=== PATIENT | male | born 1955 | race American Indian/Alaskan Native ===

== ENCOUNTER 2016-12-24 00:53 | Inpatient (IN) | payer MEDICARE ==
[2016-12-24 01:37] LABS: Basophils % (Auto) 0.3 % (0.0-1.8); Eosinophils % (Auto) 0.4 % (0.0-4.3); Hemoglobin 12.6 gm/dl (11.8-15.2); Mean Corpuscular HGB Conc 32 % (32-34); Mean Corpuscular Hemoglobin 27 pg (28-32); Mean Corpuscular Volume 85 fl (84-94); Platelet Count 220 K/mm3 (140-440); Red Blood Count 4.59 M/mm3 (3.65-5.03); White Blood Count 6.6 K/mm3 (4.5-11.0)
[2016-12-24 01:55] LABS: Anion Gap 17 mmol/L; Blood Urea Nitrogen 12 mg/dL (9-20); Calcium 8.7 mg/dL (8.4-10.2); Carbon Dioxide 27 mmol/L (22-30); Chloride 103.1 mmol/L (98-107); Glucose 120 mg/dL (75-100); Potassium 4.3 mmol/L (3.6-5.0); Sodium 143 mmol/L (137-145)
[2016-12-24] MEDS ORDERED: ZOFRAN IV ONE (02:30)
[2016-12-24] MEDS ORDERED: MORPHINE IV ONE (02:30)
--- NOTE | 2016-12-24 02:37 | Emergency Department Report ---
HPI - General Chief Complaint: Chest Pain Time Seen by Provider: 12/24/16 02:16 - HPI HPI: Room 9 The patient is a 61-year-old male presenting with a chief complaint of chest pain. The patient has a history of neuroendocrine cancer states yesterday he developed lower right chest pain described as aching in nature. The patient states the pain initially was intermittent but tonight has become constant. The patient states the pain has worsened tonight. Patient denies shortness of breath, nausea/vomiting, diaphoresis, cough, pleurisy or fever. The patient currently gives his pain a score of 4-6/10. The patient states he's never had a stress test or cardiac catheterization Location: Right chest Duration: 2 days Quality: Aching Severity: 4-6/10 Modifying factors: [see above] Context: [see above] Mode of transportation: Unknown ED Past Medical Hx - Past Medical History Previous Medical History?: Yes Additional medical history: Cancer of Pancreas - Surgical History Past Surgical History?: No - Family History Family history: no significant - Social History Smoking Status: Never Smoker Substance Use Type: None (denies illicit drug use) ED Review of Systems ROS: Stated complaint: LOWER CHEST PAIN Other details as noted in HPI Comment: All other systems reviewed and negative Constitutional: denies: chills, fever Eyes: denies: eye pain, eye discharge, vision change ENT: denies: ear pain, throat pain Respiratory: denies: cough, shortness of breath, wheezing Cardiovascular: chest pain Endocrine: no symptoms reported Gastrointestinal: denies: abdominal pain, nausea, diarrhea Genitourinary: denies: urgency, dysuria Musculoskeletal: denies: back pain, joint swelling, arthralgia Skin: denies: rash, lesions Neurological: denies: headache, weakness, paresthesias Psychiatric: denies: anxiety, depression Hematological/Lymphatic: denies: easy bleeding, easy bruising Physical Exam - Physical Exam Vital Signs: Vital Signs 12/24/16 12/24/16 01:09 01:56 Temperature 98.1 F 98.6 F Pulse Rate 79 77 Respiratory 17 16 Rate Blood Pressure 141/84 Blood Pressure 141/84 126/73 [Left] O2 Sat by Pulse 99 99 Oximetry Physical Exam: GENERAL: The patient is well-developed well-nourished male lying on stretcher not appearing to be in acute distress. [] HEENT: Normocephalic. Atraumatic. Extraocular motions are intact. Patient has moist mucous membranes. NECK: Supple. Trachea midline CHEST/LUNGS: Clear to auscultation. There is no respiratory distress noted. There is no chest wall tenderness to palpation HEART/CARDIOVASCULAR: Regular. There is no tachycardia. There is no gallop rub or murmur. ABDOMEN: Abdomen is soft, nontender. Patient has normal bowel sounds. There is no abdominal distention. SKIN: There is no rash. There is no edema. There is no diaphoresis. NEURO: The patient is awake, alert, and oriented. The patient is cooperative. The patient has normal speech MUSCULOSKELETAL: There is no evidence of acute injury. ED Course Vital Signs 12/24/16 12/24/16 01:09 01:56 Temperature 98.1 F 98.6 F Pulse Rate 79 77 Respiratory 17 16 Rate Blood Pressure 141/84 Blood Pressure 141/84 126/73 [Left] O2 Sat by Pulse 99 99 Oximetry ED Medical Decision Making - Lab Data Result diagrams: 12/24/16 01:16 12/24/16 01:16 Laboratory Tests 12/24/16 12/24/16 12/24/16 01:16 01:16 04:29 WBC 6.6 RBC 4.59 Hgb 12.6 Hct 39.0 MCV 85 MCH 27 L MCHC 32 RDW 15.0 Plt Count 220 Lymph % (Auto) 39.8 H [place] % (Auto) 13.9 H Eos % (Auto) 0.4 Baso % (Auto) 0.3 Lymph # 2.6 [place] # 0.9 H Eos # 0.0 Baso # 0.0 Seg Neutrophils % 45.6 Seg Neutrophils # 3.0 Sodium 143 Potassium 4.3 Chloride 103.1 Carbon Dioxide 27 Anion Gap 17 BUN 12 Creatinine 1.0 Estimated GFR > 60 BUN/Creatinine Ratio 12.00 Glucose 120 H Calcium 8.7 Troponin T < 0.010 < 0.010 - EKG Data -: EKG Interpreted by Me EKG shows normal: sinus rhythm Rate: normal - EKG Data When compared to previous EKG there are: previous EKG unavailable Interpretation: nonspecific ST-T wave jacek (seal vision leads V2 and V3, V4, V5 likely secondary to early repolarization. There are no reciprocal changes) - Radiology Data Radiology results: image reviewed (chest x-ray) interpreted by me: Chest x-ray- no focal infiltrates, no pneumothorax. Port in place - Differential Diagnosis PE, ACS, pneumothorax, GERD, pericarditis Critical care attestation.: If time is entered above; I have spent that time in minutes in the direct care of this critically ill patient, excluding procedure time. ED Disposition Clinical Impression: Chest pain Disposition: OP ADMIT IP TO THIS HOSP Is pt being admited?: Yes Does the pt Need Aspirin: No Condition: Fair Instructions: Chest Pain (ED) Time of Disposition: 05:51 (hospitalist paged. CT chest pending)
[2016-12-24] MEDS ORDERED: NACL ONE (04:14)
--- NOTE | 2016-12-24 06:58 | Cat Scan Report ---
FINAL REPORT EXAM: CT ANGIO CHEST HISTORY: right-sided chest pain pt wih known liver ca. TECHNIQUE: CT angiography of the chest was performed. IV contrast administered. Coronal and sagittal reformatted images were obtained. PRIORS: None. FINDINGS: There is no aortic dissection seen. There is no significant mediastinal or hilar mass seen. There are no filling defects seen within the pulmonary arterial circulation to suggest pulmonary embolism. The lungs are clear. There is no pneumothorax seen. There are no pleural effusions seen. There are numerous hepatic masses seen which are consistent with malignancy. There also multiple sclerotic lesions seen in the spine, ribs, sternum, humeral heads and scapulae. This is consistent with osteoblastic metastatic disease. IMPRESSION: Hepatic masses are consistent with malignancy/metastatic disease. Osteoblastic metastatic disease. No acute abnormality seen in the chest. There is no pulmonary embolism or aortic dissection seen.
--- NOTE | 2016-12-24 07:32 | XRay Report ---
CHEST 2 VIEWS INDICATION: Chest pain, on and off since yesterday. COMPARISON: None similar at this institution. FINDINGS: PA and lateral chest radiographs demonstrate right chest port tip about the cavoatrial junction, overlying the spine. Normal cardiomediastinal silhouette. Well-expanded lungs with approximately 6 mm peripheral right mid lung nodular density not entirely excluded on the frontal view. Bones questionably sclerotic with mild superior endplate depression of a lower thoracic vertebra posteriorly. Asymmetric widening of the left fifth rib posteriorly also noted. A coil-like material also projects in the upper abdomen. Right hemidiaphragm mildly elevated anteriorly. CONCLUSION: No acute chest process with few iatrogenic changes and questionable underlying neoplastic/metastatic disease, as described. Please correlate. Thank you for the opportunity to participate in this patient's care.
--- NOTE | 2016-12-24 07:36 | Admit Criteria Form ---
Admission Criteria Documentation: CARDIOLOGY GRG Clinical Indications for Admission to Inpatient Care ( Place 'X' for any and all applicable criteria): Hospital admission is needed for appropriate care of the patient because of ANY ONE of the following (1): [ ] I. Hemodynamic instability as indicated by ALL of the following (1)(2)(3) (4)(5) [ ]a) Vital signs or other findings not as expected for chronic patient condition or baseline [ ]b) Instability indicated by ANY ONE of the following: [ ]i) Hypotension [ ]ii) Symptomatic Tachycardia unresponsive to treatment ( e.g., analgesia, fluids, sedation as indicated) [ ]iii) Inadequate perfusion indicated by ANY ONE of the following: [ ] 1) Lactic acidosis (> 2 mmol/L) [ ] 2) New abnormal capillary refill (> 3 seconds) [ ] 3) Reduced urine output [ ] 4) New altered mental status [ ]iv) Orthostatic vital sign changes unresponsive to treatment (e.g., fluids) [ ]v) IV inotropic or vasopressor medication required to maintain adequate blood pressure or perfusion [ ] II. Severe heart failure as indicated by ANY ONE of the following(17)(18) [ ]a) Respiratory distress [ ]b) Hypotension [ ]c) Anasarca (refractory to outpatient therapy) [ ]d) Cardiac arrhythmias of immediate concern [ ]e) Myocardial ischemia [ ] III. Cardiac arrhythmias or findings of immediate concern indicated by ANY ONE of the following (19)(20): [ ] a) Heart rhythms that are inherently dangerous or unstable indicated by ANY ONE of the following (21)(22)(23): [ ] i) Resuscitated ventricular fibrillation or cardiac arrest [ ] ii) Ventricular escape rhythm [ ] iii) Sustained ventricular tachycardia (30 seconds or more of ventricular rhythm at greater than 100 beats per minute) [ ] iv) Nonsustained ventricular tachycardia and ANY ONE of the following: [ ] 1) Suspected cardiac ischemia as cause or consequence of ventricular tachycardia [ ] 2) In setting of acute myocarditis [ ] b) Unstable cardiac conduction defects indicated by ANY ONE of the following(23)(24)(25) [ ] i) Type II second-degree atrioventricular block [ ]ii) Third-degree atrioventricular block [ ]iii) New-onset left bundle branch block with suspected myocardial ischemia [ ]c) Any heart rhythm and ANY ONE of the following (21)(22)(26)(27) (28) [ ] i) Continuous long-term ECG monitoring needed (e.g., initiation of drug requiring monitoring for more than 24 hours) [ ] ii) Patient has automatic implanted cardioverter defibrillator that is repeatedly firing, malfunctioning, or in need of immediate adjustment of settings beyond the scope of ambulatory or observation care [ ]d) Heart rhythms of concern due to ANY ONE of the following: [ ] i) Hypotension [ ] ii) Respiratory distress [ ] iii) Association with other significant symptoms (e.g., bradycardia with syncope or ongoing dizziness, supraventricular tachycardia with chest pain (14)(15)(17) [ ] IV. Monitoring for cardiac contusion beyond the scope of observation care needed [A](30)(31)(32) [ ] V. Surgical or device complication (e.g., valve replacement complication , pacemaker dysfunction) (35)(41)(44)(45)(46) [ ] . Inpatient palliative care needed. [B](49) Also use Inpatient Palliative Care Criteria [ ] VII. Nonbacterial thrombotic (marantic) endocarditis (36)(43)(47)(48) [X] VIII. Cardiology condition, symptom, or finding for which emergency and observation care has failed or are not considered appropriate. [ ] IX. Acute valvular disease requiring inpatient as indicated by ANY ONE of the following (41) [ ]a) Acute valvular regurgitation (42) [ ]b) Noninfectious valvulitis (43) [ ]c) Obstructive valve thrombosis [ ]d) Paravalvular leak [ ]e) Other significant valvular disorder remaining after emergency or observation level of care (as appropriate) [ ]X. Pericardial disease requiring inpatient treatment as indicated by ANY ONE of the following (33)(34)(35)(36)(37) [ ]a) Suspected tamponade (38)(39)(40) [ ]b) Hemopericardium [ ]c) Other significant pericardial disorder remaining after emergency or observation level of care (as appropriate) [ ] XI. Cardiac ischemia beyond scope of emergency and observation care. [ ] XII. Hypertension requiring inpatient treatment as indicated by ANY ONE of the following (6)(7)(8) [ ]a) SBP greater than 220 mm Hg or DBP greater than 120 mmHg despite treatment [ ]b) SBP greater than 140 mm Hg or DBP greater than 100 mm Hg with evidence of acute end organ damage as indicated by ANY ONE of the following [ ] i) Altered mental status [ ] ii) Acute renal failure as indicated by new onset of ANY ONE of the following (9)(10)(11)(12)(13) [ ]1) 3-fold rise in serum creatinine from baseline [ ]2) Serum creatinine greater than 4 mg/dL ( 354 micromoles/L) with acute rise greater than 0.5 mg/dL (44.2 micromoles/L) [ ]3) Reduction of more than 75% in estimated glomerular filtration rate from baseline [ ]4) Estimated glomerular filtration rate less than 35 mL/min/1.73m2 (0.59 mL/sec/1.73m2) in child up to 18 years of age [ ]5) Cessation of urine output indicated by ALL of the following [ ]A. Adequate volume status [ ]B. Inadequate urine output as indicated by ANY ONE of the following [ ]a. Urine output less than 0.3 mL/kg/hr for 24 hours [ ]b. Anuria (urine output less than 0.1 mL/kg/hr) for 12 hours [ ] iii) Aortic dissection [ ] iv) Myocardial Ischemia [ ] v) Left ventricular heart failure [ ]vi) Retinal Hemorrhage [ ]vii) Other significant finding [ ]c) Hypertension in child requiring inpatient treatment as indicated by ALL of the following(14)(15)(16) [ ] i) Outpatient treatment not effective, not available, or not appropriate [ ]ii) SBP or DBP greater than 95th percentile for age [ ]iii) Evidence of acute end organ damage as indicated by ANY ONE of the following [ ]1) Altered mental status [ ]2) Acute renal failure as indicated by new onset of ANY ONE of the following(9)(10)(11)(12)(13) [ ]A. 3-fold rise in serum creatinine from baseline [ ]B. Serum creatinine greater than 4 mg/dL (354 micromoles/L) with acute rise greater than 0.5 mg/dL (44.2 micromoles/L) [ ]C. Reduction of more than 75% in estimated glomerular filtration rate from baseline [ ]D. Estimated glomerular filtration rate less than 35 mL/min/1.73m2 (0.59 mL/sec/1.73m2) in child up to 18 years of age [ ]E. Cessation of urine output indicated by ALL of the following [ ]a. Adequate volume status [ ]b. Inadequate urine output as indicated by ANY ONE of the following [ ]i) Urine output less than 0.3 mL/kg/hr for 24 hours [ ]ii) Anuria ( urine output less than 0.1 mL/kg/hr) for 12 hours [ ]3) Severe headache [ ]4) Visual disturbance [ ]5) Retinal hemorrhage [ ]6) Other significant finding [ ]XIII. Complications of transplanted heart indicated by ANY ONE of the following(61): [ ]a) Acute graft rejection requiring inpatient management (eg, intravenous immunosuppression)(62)(63) [ ]b) Acute graft heart failure indicated by ANY ONE of the following(64): [ ]i) Hemodynamic instability [ ]ii) Cardiac arrhythmias of immediate concern [ ]iii) Pulmonary edema that is very severe (eg, mechanical ventilation needed, imminent or likely, need for 100% oxygen to keep oxygen saturation above 90%) [ ]iv) Pulmonary edema that is persistent as indicated by ALL of the following: [ ]1) New need for oxygen therapy to keep oxygen saturation above 90% (or increased FiO2 need from baseline) [ ]2) Has not improved sufficiently with emergency department or observation care IV diuretics or other heart failure treatments[E] [ ]v) Altered mental status that is severe or persistent [ ]vi) Increased creatinine (new on laboratory test) with reduction of more than 50% in estimated glomerular filtration rate from baseline [ ]vii) Progressively (ongoing) rising creatinine (known from past laboratory test) with reduction of more than 25% in estimated glomerular filtration rate from baseline [ ]viii) Acute renal failure [ ]ix) Acute peripheral ischemia (eg, examination shows pulseless, cool, mottled, or cyanotic extremity) [ ]x) Pulmonary artery catheter monitoring needed [ ]xi) Other sign or symptom of heart failure requiring inpatient treatment (ie, too severe or not responsive to outpatient and observation care treatment) [ ]c) Infection requiring inpatient management (eg, Hemodynamic instability, need for intravenous antimicrobial treatment)(66)(67)(68)(69)(70) [ ]d) Cardiac allograft vasculopathy requiring inpatient management ( eg evidence of cardiac ischemia)(71) [ ]e) Other complication of transplanted heart (eg, stroke, severe pulmonary hypertension, severe valvular dysfunction) requiring inpatient management(72) The original [facility] content created by [facility] has been revised. The portions of the content which have been revised are identified through the use of italic text or in bold, and [facility] has neither reviewed nor approved the modified material. All other unmodified content is copyright [facility] Please see references footnoted in the original [facility] edition 2016 Admission Criteria Met: Yes
[2016-12-24] MEDS ORDERED: TYLENOL PO PRN (07:49)
[2016-12-24] MEDS ORDERED: ZOFRAN IV PRN (07:49)
[2016-12-24] MEDS ORDERED: DULCOLAX PR PRN (07:49)
[2016-12-24] MEDS ORDERED: NITROSTAT SL PRN (07:51)
[2016-12-24] MEDS ORDERED: MORPHINE IV PRN (07:51)
[2016-12-24] MEDS ORDERED: SODIUM CHLORIDE FLUSH SYRINGE 10 ML IV PRN (08:06)
[2016-12-24] MEDS ORDERED: BABY ASPIRIN PO STA (08:06)
[2016-12-24] MEDS ORDERED: ZOFRAN IM PRN (08:13)
--- NOTE | 2016-12-24 08:15 | History and Physical Report ---
<CLAUDETTE BETTENCOURT - Last Filed: 12/24/16 14:20> History of Present Illness Date of examination: 12/24/16 Date of admission: 12/24/2016 Chief complaint: Chest Pain History of present illness: Patient is a 61 years old male with past medical history of liver cancer who presented to the ED complaining of right chest pain. He states that the pain began this morning and consisted of a dull pain. The pain was located over his right chest area somewhat near his shoulder; non radiating. The onset of pain came while the patient was at home. He noticed the pain as he was pulling something on his car. The pain is a dull, preceded by a short interval of a sharp pain. The sharp pain lasted around 30 second. He continued to have several episodes of the pain throughout the morning, so his decided to take him to the ED around 6:00 am. The painful episodes did not increase in intensity or severity during this time. At the ED the patient was given nitroglycerin, ASA and morphine which he claims helped alleviate the pain somewhat. The patient currently rated his pain a score of 5/10. He denies shortness of breath, nausea vomiting, and diaphoresis during these episodes of pain. Patient denies any recent flights or long car trips. He has never had chest pain in the past. Past History Past Medical History: other (Liver CA ) Past Surgical History: No surgical history Social history: no significant social history Family history: diabetes, hypertension Medications and Allergies Allergies Allergy/AdvReac Type Severity Reaction Status Date / Time No Known Allergies Allergy Unverified 12/24/16 01:09 Home Medications Medication Instructions Recorded Confirmed Last Taken Type Everolimus [Afinitor] 10 mg PO QDAY 12/24/16 12/24/16 12/23/16 History Active Meds: Active Medications Acetaminophen (Tylenol) 650 mg PO Q4H PRN PRN Reason: Pain MILD(1-3)/Fever >100.5/ECHOLS Aspirin (Aspirin) 325 mg PO DAILY LU Atorvastatin Calcium (Lipitor) 40 mg PO QHS LU Bisacodyl (Dulcolax) 10 mg WI QDAY PRN PRN Reason: Constipation unrelieved by MOM Morphine Sulfate (Morphine) 2 mg IV Q4H PRN PRN Reason: Pain, Moderate (4-6) Nitroglycerin (Nitrostat) 0.4 mg SL .Q5MIN PRN PRN Reason: Chest Pain Ondansetron HCl (Zofran) 4 mg IV Q8H PRN PRN Reason: N/V unrelieved by Reglan Ondansetron HCl (Zofran) 4 mg IM Q4H PRN PRN Reason: Nausea And Vomiting Sodium Chloride (Sodium Chloride Flush Syringe 10 Ml) 10 ml IV PRN PRN PRN Reason: LINE FLUSH Review of Systems Constitutional: no weight loss, no weight gain, no fever, no chills Ears, nose, mouth and throat: no ear discharge, no tinnitis, no decreased hearing Cardiovascular: chest pain, no orthopnea, no palpitations, no rapid/irregular heart beat, no syncope, no lightheadedness, no shortness of breath Respiratory: no cough with sputum, no excessive sputum, no hemoptysis Gastrointestinal: no nausea, no vomiting, no diarrhea, no coffee ground emesis Genitourinary Male: no hematuria, no flank pain, no discharge, no urinary frequency, no urinary hesitancy Rectal: no pain, no incontinence Musculoskeletal: no neck stiffness, no neck pain, no shooting arm pain Integumentary: no rash, no pruritis, no redness, no sores Neurological: no transient paralysis, no paralysis, no weakness, no parathesias Psychiatric: no anxiety, no memory loss, no change in sleep habits, no sleep disturbances, no insomnia Endocrine: no cold intolerance, no heat intolerance, no polyphagia, no excessive thirst Hematologic/Lymphatic: no easy bruising, no easy bleeding Allergic/Immunologic: no urticaria, no allergic rhinitis Exam - Constitutional Vitals: Temp Pulse Resp BP Pulse Ox 97.5 F L 74 16 138/77 100 12/24/16 07:51 12/24/16 07:51 12/24/16 07:51 12/24/16 07:51 12/24/16 07:51 General appearance: Present: no acute distress - EENT Eyes: Present: PERRL, EOM intact ENT: hearing intact, clear oral mucosa, dentition normal - Neck Neck: Present: supple - Respiratory Respiratory effort: normal Respiratory: bilateral: CTA - Cardiovascular Heart rate: 73 Rhythm: regular Heart Sounds: Present: S1 & S2 - Extremities Extremities: no ischemia Peripheral Pulses: within normal limits - Abdominal General gastrointestinal: Present: soft, non-tender Male genitourinary: Present: deferred - Rectal Rectal Exam: deferred - Integumentary Integumentary: Present: clear, warm, dry - Musculoskeletal Musculoskeletal: strength equal bilaterally - Psychiatric Psychiatric: appropriate mood/affect - Neurologic Neurologic: CNII-XII intact - Allied Health Allied health notes reviewed: nursing Results - Labs CBC & Chem 7: 12/24/16 08:49 12/24/16 08:49 Labs: Laboratory Last Values WBC 6.6 K/mm3 (4.5-11.0) 12/24/16 01:16 RBC 4.59 M/mm3 (3.65-5.03) 12/24/16 01:16 Hgb 12.6 gm/dl (11.8-15.2) 12/24/16 01:16 Hct 39.0 % (35.5-45.6) 12/24/16 01:16 MCV 85 fl (84-94) 12/24/16 01:16 MCH 27 pg (28-32) L 12/24/16 01:16 MCHC 32 % (32-34) 12/24/16 01:16 RDW 15.0 % (13.2-15.2) 12/24/16 01:16 Plt Count 220 K/mm3 (140-440) 12/24/16 01:16 Lymph % (Auto) 39.8 % (13.4-35.0) H 12/24/16 01:16 [place] % (Auto) 13.9 % (0.0-7.3) H 12/24/16 01:16 Eos % (Auto) 0.4 % (0.0-4.3) 12/24/16 01:16 Baso % (Auto) 0.3 % (0.0-1.8) 12/24/16 01:16 Lymph # 2.6 K/mm3 (1.2-5.4) 12/24/16 01:16 [place] # 0.9 K/mm3 (0.0-0.8) H 12/24/16 01:16 Eos # 0.0 K/mm3 (0.0-0.4) 12/24/16 01:16 Baso # 0.0 K/mm3 (0.0-0.1) 12/24/16 01:16 Seg Neutrophils % 45.6 % (40.0-70.0) 12/24/16 01:16 Seg Neutrophils # 3.0 K/mm3 (1.8-7.7) 12/24/16 01:16 Sodium 143 mmol/L (137-145) 12/24/16 01:16 Potassium 4.3 mmol/L (3.6-5.0) 12/24/16 01:16 Chloride 103.1 mmol/L (98-107) 12/24/16 01:16 Carbon Dioxide 27 mmol/L (22-30) 12/24/16 01:16 Anion Gap 17 mmol/L 12/24/16 01:16 BUN 12 mg/dL (9-20) 12/24/16 01:16 Creatinine 1.0 mg/dL (0.8-1.5) 12/24/16 01:16 Estimated GFR > 60 ml/min 12/24/16 01:16 BUN/Creatinine Ratio 12.00 % 12/24/16 01:16 Glucose 120 mg/dL (75-100) H 12/24/16 01:16 Calcium 8.7 mg/dL (8.4-10.2) 12/24/16 01:16 Troponin T < 0.010 ng/mL (0.00-0.029) 12/24/16 07:16 - Imaging and Cardiology Chest x-ray: image reviewed (neoplastic /metastatic disease) CT scan - chest: image reviewed (Hepatic masses are consistent with malignancy / Metastatic disease) Assessment and Plan Assessment and plan: Assessment and plan: Patient is a 61 years old male with past medical history of Liver cancer presented to the ED complaining of right chest pain. He denies shortness of breath, nausea vomiting, and diaphoresis during these episodes of pain. Patient denies any recent flights, trauma or long car trips. He has never had chest pain in the past. Chest x-ray-no focal infiltrates, no pneumothorax. Cardiac enzyme negative and EKG normal sinus rhythm. CTA no pulmonary embolism. ASSESSMENT/PLAN Acute coronary syndrome We will admit to telemetry 12 lead EKG Normal Sinus Rhythm, we will also obtained another EKG for any changes have taken since the first obtain We will do serial cardiac enzymes and follow cardiac enzymes troponin. Fluid hydration Stress test Lexiscan ordered Patient has recent Echocardiogram from [facility] Start on Aspirin Complete lipid panel Controlled with morphine Hyperlipidemia Elevated cholesterol/LDL Started on Lipitor 80mg daily Hepatic Mass CT of the chest reveled that Hepatic masses consistent with malignancy / Metastatic disease Chest Xray shows neoplastic /metastatic disease Oncology consulted DVT prophylaxis Lovenox <BILL MALAVED R - Last Filed: 12/24/16 14:23> History of Present Illness Date of admission: 12/24/16 07:49 Medications and Allergies Active Meds: Active Medications Acetaminophen (Tylenol) 650 mg PO Q4H PRN PRN Reason: Pain MILD(1-3)/Fever >100.5/ECHOLS Aspirin (Aspirin) 325 mg PO DAILY LU Atorvastatin Calcium (Lipitor) 80 mg PO QHS LU Bisacodyl (Dulcolax) 10 mg WI QDAY PRN PRN Reason: Constipation unrelieved by MOM Miscellaneous Medication (Everolimus [Afinitor]) 10 mg PO QDAY LU Morphine Sulfate (Morphine) 2 mg IV Q4H PRN PRN Reason: Pain, Moderate (4-6) Last Admin: 12/24/16 08:29 Dose: 2 mg Nitroglycerin (Nitrostat) 0.4 mg SL .Q5MIN PRN PRN Reason: Chest Pain Ondansetron HCl (Zofran) 4 mg IV Q8H PRN PRN Reason: N/V unrelieved by Reglan Ondansetron HCl (Zofran) 4 mg IM Q4H PRN PRN Reason: Nausea And Vomiting Sodium Chloride (Sodium Chloride Flush Syringe 10 Ml) 10 ml IV PRN PRN PRN Reason: LINE FLUSH Exam - Constitutional Vitals: Temp Pulse Resp BP Pulse Ox 97.9 F 73 16 138/87 100 12/24/16 12:12 12/24/16 12:12 12/24/16 12:12 12/24/16 12:12 12/24/16 12:12 Results - Labs CBC & Chem 7: 12/24/16 08:49 12/24/16 08:49 Labs: Laboratory Last Values WBC 6.6 K/mm3 (4.5-11.0) 12/24/16 08:49 RBC 4.80 M/mm3 (3.65-5.03) 12/24/16 08:49 Hgb 13.5 gm/dl (11.8-15.2) 12/24/16 08:49 Hct 41.3 % (35.5-45.6) 12/24/16 08:49 MCV 86 fl (84-94) 12/24/16 08:49 MCH 28 pg (28-32) 12/24/16 08:49 MCHC 33 % (32-34) 12/24/16 08:49 RDW 15.4 % (13.2-15.2) H 12/24/16 08:49 Plt Count 220 K/mm3 (140-440) 12/24/16 08:49 Lymph % (Auto) 30.7 % (13.4-35.0) 12/24/16 08:49 [place] % (Auto) 14.3 % (0.0-7.3) H 12/24/16 08:49 Eos % (Auto) 0.4 % (0.0-4.3) 12/24/16 08:49 Baso % (Auto) 0.7 % (0.0-1.8) 12/24/16 08:49 Lymph # 2.0 K/mm3 (1.2-5.4) 12/24/16 08:49 [place] # 0.9 K/mm3 (0.0-0.8) H 12/24/16 08:49 Eos # 0.0 K/mm3 (0.0-0.4) 12/24/16 08:49 Baso # 0.0 K/mm3 (0.0-0.1) 12/24/16 08:49 Seg Neutrophils % 53.9 % (40.0-70.0) 12/24/16 08:49 Seg Neutrophils # 3.6 K/mm3 (1.8-7.7) 12/24/16 08:49 Sodium 138 mmol/L (137-145) 12/24/16 08:49 Potassium 4.2 mmol/L (3.6-5.0) 12/24/16 08:49 Chloride 100.5 mmol/L (98-107) 12/24/16 08:49 Carbon Dioxide 24 mmol/L (22-30) 12/24/16 08:49 Anion Gap 18 mmol/L 12/24/16 08:49 BUN 11 mg/dL (9-20) 12/24/16 08:49 Creatinine 1.0 mg/dL (0.8-1.5) 12/24/16 08:49 Estimated GFR > 60 ml/min 12/24/16 08:49 BUN/Creatinine Ratio 11.00 % 12/24/16 08:49 Glucose 146 mg/dL (75-100) H 12/24/16 08:49 Calcium 8.6 mg/dL (8.4-10.2) 12/24/16 08:49 Troponin T < 0.010 ng/mL (0.00-0.029) 12/24/16 11:10 Triglycerides 124 mg/dL (2-149) 12/24/16 08:49 Cholesterol 226 mg/dL (50-199) H 12/24/16 08:49 LDL Cholesterol Direct 152 mg/dL (50-130) H 12/24/16 08:49 HDL Cholesterol 50 mg/dL (40-59) 12/24/16 08:49 Cholesterol/HDL Ratio 4.52 % 12/24/16 08:49 Assessment and Plan Assessment and plan: I saw and evaluated the patient. I agree with the findings and the plan of care as documented in the Nurse Practitioner's~note, with the following corrections and additions.
[2016-12-24] MEDS ORDERED: MORPHINE ONE (08:23)
[2016-12-24] MEDS ORDERED: BABY ASPIRIN ONE (08:24)
[2016-12-24 09:07] LABS: Basophils % (Auto) 0.7 % (0.0-1.8); Eosinophils % (Auto) 0.4 % (0.0-4.3); Hematocrit 41.3 % (35.5-45.6); Hemoglobin 13.5 gm/dl (11.8-15.2); Mean Corpuscular HGB Conc 33 % (32-34); Mean Corpuscular Hemoglobin 28 pg (28-32); Mean Corpuscular Volume 86 fl (84-94); Platelet Count 220 K/mm3 (140-440); Red Cell Distribution Width 15.4 % (13.2-15.2); White Blood Count 6.6 K/mm3 (4.5-11.0)
[2016-12-24 09:21] LABS: Anion Gap 18 mmol/L; Blood Urea Nitrogen 11 mg/dL (9-20); Calcium 8.6 mg/dL (8.4-10.2); Carbon Dioxide 24 mmol/L (22-30); Chloride 100.5 mmol/L (98-107); Glucose 146 mg/dL (75-100); Potassium 4.2 mmol/L (3.6-5.0); Sodium 138 mmol/L (137-145)
[2016-12-24] MEDS ORDERED: ASPIRIN PO SCH (10:00)
[2016-12-24 14:57] VITALS: BP 127/66
--- NOTE | 2016-12-24 15:00 | Discharge Summary ---
<CLAUDETTE BETTENCOURT - Last Filed: 12/24/16 15:13> Providers - Providers Date of Admission: 12/24/16 07:49 Date of discharge: 12/24/16 Attending physician: GALILEO MALAVE 12/24/16 Consult to Cardiac Rehabilitation [CONS] Routine Reason For Exam: Phase I 12/24/16 08:10 Consult to Physician [CONS] Routine Consulting Provider: JUAN AVERY Reason For Exam: neoplastic/metastatic disease Place consult to:: yes Notified:: yes Phone number called:: yes Was contact made?: Yes Primary care physician: TIE PULLER Hospitalization Condition: Fair Hospital course: Patient is a 61 years old male with past medical history of liver cancer who presented to the ED complaining of right chest pain. He states that the pain began this morning and consisted of a dull pain. The pain was located over his right chest area somewhat near his shoulder; non radiating. Patient was diagnosed with Acute coronary syndrome, Hyperlipidemia and Hepatic Mass. Negative cardiac enzymes X3 ECGs shows normal sinus rythm, CXR was wnl and CTA with no risk for pulmonary embolism. CTA of the chest reveled that Hepatic masses consistent with malignancy /Metastatic disease.Chest Xray shows neoplastic /metastatic disease. Patient was schedule for tomorrow morning for stress test to rule out ACS, but patient left against medical advice. Diagnosed Acute coronary syndrome Hyperlipidemia Hepatic Mass Disposition: LEFT AGAINST MED ADVICE Time spent for discharge: 33 minutes Core Measure Documentation - Palliative Care Palliative Care/ Comfort Measures: Not Applicable - Core Measures Any of the following diagnoses?: none Exam - Physical Exam Narrative exam: I was not able to examine patient. Patient left against medical advice. - Constitutional Vitals: Temp Pulse Resp BP Pulse Ox 97.6 F 86 16 127/66 100 12/24/16 14:57 12/24/16 14:57 12/24/16 14:57 12/24/16 14:57 12/24/16 14:57 Plan Follow up with: FELIPA ROJO MD [Primary Care Provider] - 3-5 Days <GALILEO MALAVE - Last Filed: 12/24/16 15:43> Providers - Providers Date of Admission: 12/24/16 07:49 Attending physician: GALILEO MALAVE 12/24/16 Consult to Cardiac Rehabilitation [CONS] Routine Reason For Exam: Phase I 12/24/16 08:10 Consult to Physician [CONS] Routine Consulting Provider: JUAN AVERY Reason For Exam: neoplastic/metastatic disease Place consult to:: yes Notified:: yes Phone number called:: yes Was contact made?: Yes Primary care physician: TIE PULLER Hospitalization Hospital course: I saw and evaluated the patient. I agree with the findings and the plan of care as documented in the Nurse Practitioner's~note, with the following corrections and additions. Exam - Constitutional Vitals: Temp Pulse Resp BP Pulse Ox 97.6 F 86 16 127/66 100 12/24/16 14:57 12/24/16 14:57 12/24/16 14:57 12/24/16 14:57 12/24/16 14:57
[2016-12-25] MEDS ORDERED: ASPIRIN PO SCH (10:00)
[2016-12-25] MEDS ORDERED: EVEROLIMUS 10 MG PO SCH (10:00)
== END 2016-12-24 15:48 | disposition left against medical advice (07) | DRG 311 ==
LOC: ED 00:53 → 4A 07:49
PROVIDERS: ADMIT Hospitalist; ATTEND Hospitalist
DX: I24.9 Acute ischemic heart disease, unspecified (principal); E78.5 Hyperlipidemia, unspecified; R16.0 Hepatomegaly, not elsewhere classified; Z85.07 Personal history of malignant neoplasm of pancreas; Z85.05 Personal history of malignant neoplasm of liver; Z83.3 Family history of diabetes mellitus; Z82.49 Family history of ischemic heart disease and other diseases of the circulatory system
CPT/HCPCS: 36415; 71020; 71275; 80048; 80061; 84484; 85025; 93005; 93010; 96374; 96375; 96376; J2270; J2405; Q9967

== ENCOUNTER 2018-07-17 01:23 | Emergency (ER) | payer MEDICARE ==
[2018-07-17] MEDS ORDERED: D50W (25GM) Syringe IV ONE ×3 (01:29→02:52)
--- NOTE | 2018-07-17 01:36 | Emergency Department Report ---
ED General Adult HPI - General Chief complaint: Altered Mental Status Stated complaint: AMS Time Seen by Provider: 07/17/18 01:31 Source: patient, family, EMS (verbal report received from EMS.ems notes not available at time of chart dictation), RN notes reviewed, old records reviewed Mode of arrival: Stretcher Limitations: Altered Mental Status - History of Present Illness Initial comments: This is a 63-year-old gentleman with a history of pancreatic cancer, metastatic disease, to bone and liver, recently admitted to [facility] for h ypoglycemia. Patient currently on radiation therapy. Primary care doctor is Dr. Vaughn Stacy in [place]. Apparently, the patient has a history of pancreatic cancer, with insulinoma, and metastatic disease. 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 He was started with a D10 infusion, and gradually weaned his blood glucose improved with titration of dexamethasone, and diazoxide. The patient was discharged on diazoxide 200 mg every 8 hours, and dexamethasone, 2 mg, every 8 hours. He apparently had hematology oncology follow-up on September 13 and was supposed to also follow-up with endocrinology. Today, he is brought to the hospital by EMS for altered mental status and hypoglycemia. EMS was contacted by his daughter. There is apparently no trauma. EMS does not know when the patient's last known well time is. They report his Accu-Chek in the field was 12. The patient was brought to the emergency room, breathing sonorously, not protecting secretions. An emergent external jugular IV was placed, and the patient received 4 A of D50, which improved his Accu-Cheks at over 250. His mental status improved dramatically. He is then able to protect his airway. He complains of weakness, but denies specific pain. He endorses compliance with his medications. -: Gradual Consistency: now resolved Improves with: medication Worsens with: none Associated Symptoms: confusion, weakness - Related Data Home Medications Medication Instructions Recorded Confirmed Last Taken Everolimus [Afinitor] 10 mg PO QDAY 12/24/16 12/24/16 12/23/16 Allergies Allergy/AdvReac Type Severity Reaction Status Date / Time No Known Allergies Allergy Unverified 12/24/16 01:09 ED Review of Systems ROS: Stated complaint: AMS Other details as noted in HPI Constitutional: malaise, weakness Eyes: denies: eye discharge ENT: denies: epistaxis Respiratory: denies: cough Cardiovascular: denies: chest pain Gastrointestinal: denies: abdominal pain Genitourinary: denies: dysuria Musculoskeletal: denies: back pain Skin: denies: lesions Neurological: weakness ED Past Medical Hx - Past Medical History Additional medical history: Cancer of Pancreas - Social History Smoking Status: Never Smoker Substance Use Type: None (denies illicit drug use) - Medications Home Medications: Home Medications Medication Instructions Recorded Confirmed Last Taken Type Everolimus [Afinitor] 10 mg PO QDAY 12/24/16 12/24/16 12/23/16 History ED Physical Exam - General General appearance: alert, anxious - Head Head exam: Present: atraumatic, normocephalic - Eye Eye exam: Present: normal appearance, EOMI, other (visual acuity intact to finger counting, color perception, reading at a close distance). Absent: nystagmus - ENT ENT exam: Present: normal exam, normal orophraynx, mucous membranes moist, normal external ear exam - Neck Neck exam: Present: normal inspection, full ROM. Absent: tenderness, meningismus - Respiratory Respiratory exam: Present: normal lung sounds bilaterally. Absent: respiratory distress - Cardiovascular Cardiovascular Exam: Present: normal rhythm, tachycardia, normal heart sounds. Absent: systolic murmur, diastolic murmur, rubs, gallop - GI/Abdominal GI/Abdominal exam: Present: soft. Absent: distended, tenderness, guarding, rebound, rigid, pulsatile mass - Rectal Rectal exam: Present: deferred - Extremities Exam Extremities exam: Present: normal inspection, full ROM, pedal edema, other (2+ pulses noted in the bilateral upper, lower extremities. Compartments soft. No long bony tenderness. The pelvis is stable.). Absent: joint swelling, calf tenderness - Back Exam Back exam: Present: normal inspection, full ROM. Absent: tenderness, CVA tenderness (R), paraspinal tenderness, vertebral tenderness - Neurological Exam Neurological exam: Present: alert, oriented X3, CN II-XII intact, other (Extraocular movements intact. Tongue midline. No facial droop. Facial sensation intact to light touch in the V1, V2, V3 distribution bilaterally. 5 and 5 strength in 4 extremities.. Sensation is intact to light touch in 4 extremities.). Absent: motor sensory deficit - Psychiatric Psychiatric exam: Present: anxious - Skin Skin exam: Present: warm, dry, intact, normal color. Absent: rash ED Course Vital Signs 07/17/18 07/17/18 07/17/18 01:24 01:30 01:37 Temperature Pulse Rate 98 H 100 H Respiratory 23 22 Rate Blood Pressure 131/64 140/74 O2 Sat by Pulse 97 100 96 Oximetry 07/17/18 07/17/18 07/17/18 01:46 01:52 02:06 Temperature 95.3 F L Pulse Rate 95 H 91 H Respiratory 21 Rate Blood Pressure 140/74 O2 Sat by Pulse 100 100 Oximetry 07/17/18 07/17/18 02:16 03:00 Temperature Pulse Rate 88 86 Respiratory 21 Rate Blood Pressure 144/79 144/79 O2 Sat by Pulse 100 Oximetry - Reevaluation(s) Reevaluation #1: 07/17/18 02:37 Differential diagnosis, including the not limited to: Intracranial injury, cervical spine injury, hypoglycemia secondary to insulinoma, medication noncompliance, pneumonia, urinary tract infection Assessment and plan: 63-year-old gentleman with known insulinoma, recently admitted to [facility] for persistent hypoglycemia, had prolonged hospital stay and discharged on multiple medications. Now hypothermic with a core temperature of 95, although currently alert and oriented, with a nonfocal neurologic examination. The patient will be started on a D10 drip. He'll be started on active patient rewarming. He denies cough, neck pain, headache, abdominal pain, doubt bacteremia. Hypothermia is likely secondary to environmen antoni factors. We will initiate every 1 hour fingersticks, continue supportive care, and follow-up on diagnostic laboratory studies and radiology. He will require admission for glycemic monitoring, and medication optimization. Reevaluation #2: 07/17/18 02:51 Laboratory studies reviewed and are unremarkable. Patient hypoglycemic again. D50 ordered. Discussed case with Hospital physician, Dr. Rosa, who recommends transfer as his Hospital does not have endocrinology available for consultation. Reevaluation #3: 07/17/18 03:34 CT scan of the brain, cervical spine negative for acute disease. Most recent Accu-Chek 130s after oral glucose/R juice and D50. Dr. Bruner at [facility] accept the patient as a transfer. The patient has an emergent medical condition at this time which cannot be definitively managed at this hospital secondary to lack of physician subspecialty resources; we do not have endocrinology available for consultation. The patient is hemodynamically stable at this point in time and medically suitable for ibrahim sfer. Discussed this with family and patient verbalized understanding. ED Medical Decision Making - Lab Data Result diagrams: 07/17/18 01:43 07/17/18 01:43 Vital Signs 07/17/18 07/17/18 07/17/18 01:37 01:46 01:52 Temperature 95.3 F L Pulse Rate 100 H 95 H Respiratory 22 21 Rate Blood Pressure 140/74 O2 Sat by Pulse 96 100 Oximetry Lab Results 07/17/18 07/17/18 07/17/18 Range/Units 01:30 01:42 01:43 WBC 7.5 (4.5-11.0) K/mm3 RBC 3.61 L (3.65-5.03) M/mm3 Hgb 10.7 L (11.8-15.2) gm/dl Hct 33.2 L (35.5-45.6) % MCV 92 (84-94) fl MCH 30 (28-32) pg MCHC 32 (32-34) % RDW 17.7 H (13.2-15.2) % Plt Count 174 (140-440) K/mm3 Lymph % (Auto) 6.3 L (13.4-35.0) % [place] % (Auto) 8.5 H (0.0-7.3) % Eos % (Auto) 0.0 (0.0-4.3) % Baso % (Auto) 0.1 (0.0-1.8) % Lymph # 0.5 L (1.2-5.4) K/mm3 [place] # 0.6 (0.0-0.8) K/mm3 Eos # 0.0 (0.0-0.4) K/mm3 Baso # 0.0 (0.0-0.1) K/mm3 Seg Neutrophils % 85.1 H (40.0-70.0) % Seg Neutrophils # 6.4 (1.8-7.7) K/mm3 PT (12.2-14.9) Sec. INR (0.87-1.13) APTT (24.2-36.6) Sec. POC Glucose 64 L 298 H (70-105) Ammonia (25-60) umol/L 07/17/18 07/17/18 Range/Units 01:43 01:43 WBC (4.5-11.0) K/mm3 RBC (3.65-5.03) M/mm3 Hgb (11.8-15.2) gm/dl Hct (35.5-45.6) % MCV (84-94) fl MCH (28-32) pg MCHC (32-34) % RDW (13.2-15.2) % Plt Count (140-440) K/mm3 Lymph % (Auto) (13.4-35.0) % [place] % (Auto) (0.0-7.3) % Eos % (Auto) (0.0-4.3) % Baso % (Auto) (0.0-1.8) % Lymph # (1.2-5.4) K/mm3 [place] # (0.0-0.8) K/mm3 Eos # (0.0-0.4) K/mm3 Baso # (0.0-0.1) K/mm3 Seg Neutrophils % (40.0-70.0) % Seg Neutrophils # (1.8-7.7) K/mm3 PT 14.0 (12.2-14.9) Sec. INR 1.02 (0.87-1.13) APTT 53.9 H (24.2-36.6) Sec. POC Glucose (70-105) Ammonia 42.0 (25-60) umol/L - EKG Data -: EKG Interpreted by Pa EKG shows normal: sinus rhythm Rate: normal - EKG Data 07/17/18 02:39 Sinus, 99 bpm, normal axis, QTC prolonged, Q waves noted in 1, aVL, abnormal EKG, not having chest pain, not consistent with ST elevation myocardial infarction. - Radiology Data Radiology results: pending Critical Care Time: Yes Critical care time in (mins) excluding proc time.: 35 Critical care attestation.: If time is entered above; I have spent that time in minutes in the direct care of this critically ill patient, excluding procedure time. ED Disposition Clinical Impression: Hypoglycemia, Insulinoma Disposition: DC/TX-02 [id number]-TRM GEN HOSP IP Is pt being admited?: No Does the pt Need Aspirin: No Condition: Critical Referrals: PRIMARY CARE, [Primary Care Provider] - 3-5 Days
[2018-07-17] MEDS ORDERED: D10W 1,000 ML IV SCH (02:00)
[2018-07-17 02:17] LABS: Basophils % (Auto) 0.1 % (0.0-1.8); Hematocrit 33.2 % (35.5-45.6); Hemoglobin 10.7 gm/dl (11.8-15.2); Lymphocytes # (Auto) 0.5 K/mm3 (1.2-5.4); Lymphocytes % (Auto) 6.3 % (13.4-35.0); Mean Corpuscular HGB Conc 32 % (32-34); Mean Corpuscular Volume 92 fl (84-94); Monocytes # (Auto) 0.6 K/mm3 (0.0-0.8); Monocytes % (Auto) 8.5 % (0.0-7.3); Platelet Count 174 K/mm3 (140-440); Red Blood Count 3.61 M/mm3 (3.65-5.03); Red Cell Distribution Width 17.7 % (13.2-15.2)
[2018-07-17 02:32] LABS: INR 1.02 (0.87-1.13)
[2018-07-17 02:33] LABS: Partial Thromboplastin Time 53.9 Sec. (24.2-36.6)
[2018-07-17 02:41] LABS: Alanine Aminotransferase 36 units/L (7-56); Albumin 3.8 g/dL (3.9-5); BUN/Creatinine Ratio 20; Blood Urea Nitrogen 18 mg/dL (9-20); Calcium 8.1 mg/dL (8.4-10.2); Hemolysis Index 8
[2018-07-17] MEDS ORDERED: D50W (25GM) Syringe IV PRN (02:48)
[2018-07-17] MEDS ORDERED: D50W (25GM) Vial IV ONE (02:48)
[2018-07-17 02:56] LABS: Bilirubin,Urine NEG (Negative); Blood,Urine NEG (Negative); Color,Urine Straw (Yellow); Protein,Urine <15 mg/dL mg/dL (Negative); Urobilinogen,Urine < 2.0 mg/dL (<2.0)
[2018-07-17] MEDS: ROCEPHIN/NS 2 GM/100 ML 2 GM/100 ML BAG IV SCH ×2 (02:56→03:20)
--- NOTE | 2018-07-17 03:05 | Cat Scan Report ---
FINAL REPORT PROCEDURE: CT HEAD/BRAIN WO CON TECHNIQUE: Computerized tomography of the head was performed without contrast material. HISTORY: ams COMPARISON: No prior studies are available for comparison. FINDINGS: Skull and scalp: Normal. Paranasal sinuses: Normal. Ventricles and subarachnoid spaces: Normal. Cerebrum: No evidence of hemorrhage, acute infarction or mass . Cerebellum and brainstem: No evidence of hemorrhage, acute infarction or mass. Vasculature: Normal. Comments: None. IMPRESSION: Normal Examination
--- NOTE | 2018-07-17 03:07 | Cat Scan Report ---
FINAL REPORT PROCEDURE: CT CERVICAL SPINE WO CON TECHNIQUE: Computerized tomography of the cervical spine was performed from the skull base to T1 wit hout contrast material. HISTORY: ams COMPARISON: No prior studies are available for comparison. FINDINGS: There are blastic lesions throughout the cervical vertebrae suspicious for metastatic malignancy. The re is no pathological fracture. There is mild multilevel degenerative disc change with osteophytic ri dging and facet arthropathy. There is no significant foraminal stenosis. The soft tissues are unremarkable. IMPRESSION: Diffuse blastic bony metastases. There is no fracture or malalignment..
--- NOTE | 2018-07-17 03:08 | XRay Report ---
FINAL REPORT PROCEDURE: XR CHEST 1V AP TECHNIQUE: Chest radiograph anteroposterior view. CPT 66187 HISTORY: hypoglycemia ams COMPARISON: No prior studies are available for comparison. FINDINGS: Heart: Normal. Mediastinum/Vessels: Normal. Lungs/Pleural space: Lungs are expanded. There are no infiltrates, effusions or pneumothoraces.. Bony thorax: There are blastic metastases of the ribs and the right humerus.. Life support devices: There is a right-sided Port-A-Cath. The tip is in the superior vena cava.. IMPRESSION: The heart size is normal. Lungs are expanded. There are no infiltrates, effusions or pneumothoraces.. There are blastic metastases of the ribs and the right humerus.. There is a right-sided Port-A-Cath. The tip is in the superior vena cava..
[2018-07-17 03:24] LABS: WBC,Urine < 1.0 /HPF (0.0-6.0)
[2018-07-17 04:39] VITALS: BP 138/65
== END 2018-07-17 05:00 | disposition short-term general hospital (02) ==
LOC: ED 01:23
DX: E16.2 Hypoglycemia, unspecified (principal); R41.82 Altered mental status, unspecified; Z85.07 Personal history of malignant neoplasm of pancreas; C79.52 Secondary malignant neoplasm of bone marrow; C78.7 Secondary malignant neoplasm of liver and intrahepatic bile duct
CPT/HCPCS: 36415; 70450; 71045; 72125; 80053; 81001; 82140; 82962; 83735; 84443; 85025; 85610; 85730; 87040; 93005; 93010; 96365; 96366; 96376; 99291; G0480; J0696; 80320